=== PATIENT | female | born 1985 | race American Indian/Alaskan Native ===

== ENCOUNTER 2018-07-06 06:30 | Day surgery (SDC) | payer MEDICARE ==
--- NOTE | 2018-07-03 11:26 | RAD REPORT ---
EXAM DESCRIPTION: RAD - Chest Pa And Lat (2 Views) - 07/03/2018 11:14 am CLINICAL HISTORY: Preop chest, pending cholecystectomy an esophageal repair COMPARISON: None. TECHNIQUE: PA and lateral views of the chest were obtained. FINDINGS: The lungs are underinflated. This accentuates lung markings. No peripheral mass, consolida tion for acute failure findings. Heart size is normal and central vasculature is within normal limi ts. No pleural effusion or pneumothorax seen. No acute bony finding noted. No aortic abnormality. IMPRESSION: No acute cardiopulmonary process.
[2018-07-03 11:39] LABS: Absolute Monocytes 0.5 K/uL (0.1-1.3); Eosinophils % 0.8 % (0-4.4); Hematocrit 41.5 % (36.0-45.0); Lymphocytes % 23.7 % (15.3-44.8); MPV 8.1 fL (7.6-11.3); Monocytes % 5.3 % (3.3-12.3); RBC Red Blood Cell Count 4.43 M/uL (3.86-4.86)
[2018-07-03 11:52] LABS: Potassium 4.2 mmol/L (3.5-5.1)
--- OUTSIDE RECORDS SUMMARY | 2018-07-06 06:31 | XMS REPORT ---
:1985 [facility] Address [address] [place] [address] Dr. Sanchez [address] [place] [id number] Care Team Providers Name Role Phone Unavailable Unavailable Unavailable Problems This patient has no known problems. Allergies, Adverse Reactions, Alerts This patient has no known allergies or adverse reactions. Medications This patient has no known medications.
[2018-07-06] MEDS ORDERED: NA CHLORIDE 0.9% 1,000 ML ONE (06:58)
[2018-07-06] MEDS ORDERED: CIPROFLOXACIN 400mg IV 400 MG/200 ML BAG IV ONE (06:58)
[2018-07-06] MEDS ORDERED: EPINEPHRINE/PF 1 MG/ML AMP ONE (07:20)
[2018-07-06] MEDS ORDERED: LIDOCAINE 1% W/EPI 1:100,000 MDV 50 ML VIAL ONE (07:20)
[2018-07-06] MEDS ORDERED: PROPOFOL 200 MG/20 ML VIAL IV ONE (07:20)
[2018-07-06] MEDS ORDERED: GLYCOPYRROLATE 0.2 MG/ML SYR ONE ×2 (07:20)
[2018-07-06] MEDS ORDERED: LIDOCAINE 2% MPF 5 ML VIAL ONE (07:20)
[2018-07-06] MEDS ORDERED: MIDAZOLAM HCL 2 MG/2 ML INJ ONE (07:20)
[2018-07-06] MEDS ORDERED: FENTANYL CITR 250 MCG/5 ML ONE (07:22)
[2018-07-06] MEDS ORDERED: OFLOXACIN OPH 0.3%-5 ML BTL ONE (07:56)
[2018-07-06] MEDS ORDERED: ONDANSETRON 4 MG/2 ML VIAL ONE ×2 (08:28→11:09)
[2018-07-06] MEDS ORDERED: NEOSTIGMINE 1 MG/ML -10 ML VIAL ONE (08:28)
[2018-07-06] MEDS ORDERED: ROCURONIUM 50 MG/5 ML VIAL IV ONE (08:28)
[2018-07-06] MEDS ORDERED: HYDROCODONE/APAP 5/325 MG TAB ONE (11:10)
--- NOTE | 2018-07-06 18:16 | OP ---
Surgeon: Charlene Sparks MD Preoperative Diagnoses: Cerumen impaction, ear canal stenosis, Down syndrome, and esophageal web wit h dysphagia. Postoperative Diagnoses: Cerumen impaction, ear canal stenosis, Down syndrome, and esophageal web wi th dysphagia. Procedures Performed: Cerumen removal under general anesthesia and rigid esophagoscopy with balloon dilation to 13.5 mm. Indication For Procedure: Bryanna Garcia presented with dysphagia and chronic abdominal pain. She w as noted to have gallbladder dyskinesia and a swallow study demonstrating an upper esophageal web. S he was previously seen by the GI service, who was unable to pass a scope. The modified barium swallo w demonstrated the upper esophageal web. Description Of Procedure: Under general anesthesia, the patient's left ear was examined using an ope rating microscope and ear speculum. A mild amount of cerumen was removed using a wire curette. The right ear was then examined. The ear canal was completely impacted and removal of cerumen was accomp lished using a wire curette. Attention was then turned toward the oral cavity. A 25 cm rigid esopha goscope was used to perform a rigid esophagoscopy. The esophageal introitus was easily cannulated, a nd the scope was advanced to the area of the stricture. The esophageal balloon size 12-15 was passed under direct visualization through the area of stenosis and inflated to an atmospheric pressure of 3 . It was held in place for approximately 30 seconds and then deflated. The area was examined and de cision was made to repeat dilation. The balloon was again advanced through the area and inflated to 4 atmospheres. After dilation, a minimal amount of blood was noted and post-dilation photo demonstra waldo a tear in the left aspect of the esophageal web. There was no evidence of perforation of the eso phagus. The scope was withdrawn and the patient was returned to care of anesthesia for awakening, ex tubation. Disposition: The patient will be discharged home later today and can resume a soft diet for 48-72 ho urs and then resume regular diet. ELICIA/TORI Voice ID: [id number] Report ID: [id number]
--- NOTE | 2018-07-06 18:25 | DS ---
Date of Discharge: 07/06/2018 Discharge Note: The patient will have a procedure by Dr. Sparks following which the patient will be taken to recovery room and then will be discharged to home when stable. Disposition: Home. Condition: Stable. Discharge Instructions: Resume home medications and diet. Activity as tolerated. No heavy lifting. Remove outer dressing in 2 days. Shower. Keep wound clean and dry. Follow up in my office in 9-1 0 days, call for appointment. Tylenol No. 3 one tablet p.o. q.4 p.r.n. pain. /MODL Voice ID: [id number] Report ID: [id number]
--- NOTE | 2018-07-06 18:25 | OP ---
Date of Procedure: 07/06/2018 Surgeon: Amrit Winn MD Preoperative Diagnoses: Chronic cholecystitis and biliary dyskinesia. Postoperative Diagnoses: Chronic cholecystitis and biliary dyskinesia with extensive adhesions. Procedures: Laparoscopic cholecystectomy, lysis of adhesions. Estimated Blood Loss: Minimal. Specimen: Gallbladder. Findings: Above. Anesthesia: General. Complications: None. Disposition: The patient tolerated the procedure in stable condition and taken to Recovery in good g eneral condition. Procedure In Detail: The patient was brought to the OR and placed in supine position. General anest hesia was begun. The patient was prepped and draped in the usual sterile fashion. Marcaine 0.5% was infiltrated locally. A 15-blade was used to make a 1 cm supraumbilical midline incision. Subcutane ous tissue divided. The fascia was identified and divided. A #1 Vicryl stay suture was placed. Per itoneal cavity was entered with blunt dissection. A 12-mm trocar was placed into the peritoneal cavi ty under direct vision. Pneumoperitoneum was established. Then, three 5 mm trocars placed, 1 in the epigastrium just to the right of midline and 2 in the right subcostal region. Laparoscopy revealed extensive adhesions to the gallbladder. They were omental in nature. Fundus identified and retracte d superiorly. Adhesions were taken down with sharp and blunt dissection. Approximately 10 minutes o f time was required to dissect all of these adhesions down away from the gallbladder. Then infundibu lum was identified and retracted inferolaterally. Cystic duct and cystic artery were clearly identif ied with blunt dissection. Clips placed. Both structures were divided. Cautery was used to remove the gallbladder from the liver bed. Bleeding on the liver bed was controlled with cautery. The gall bladder was retrieved through the umbilicus via an EndoCatch bag. The right upper quadrant was irrig ated. Effluent was clear. No evidence of bleeding or bile leakage appreciated. Subsequently, all t rocars were removed under direct vision. Stay sutures were tied to each other to approximate the fas cial defect. Subcu wounds were irrigated. Bleeding controlled with cautery. 3-0 chromic used to ap proximate the subcutaneous tissue, and fei were used to close the skin. Sterile dressing was josé miguel lied. The patient was awakened and taken to Recovery in good general condition. /MODL Voice ID: [id number] Report ID: [id number]
== END 2018-07-06 11:45 | disposition home or self-care (01) ==
LOC: OR 06:30
PROVIDERS: ATTEND Otolaryngology
PROC: 09C47ZZ Extirpation of Matter from Left External Auditory Canal, Via Natural or Artificial Opening (ICD-10-PCS; 2018-07-06)
PROC: 09C37ZZ Extirpation of Matter from Right External Auditory Canal, Via Natural or Artificial Opening (ICD-10-PCS; 2018-07-06)
PROC: 0FT44ZZ Resection of Gallbladder, Percutaneous Endoscopic Approach (ICD-10-PCS; principal; 2018-07-06 07:30)
PROC: 0D758ZZ Dilation of Esophagus, Via Natural or Artificial Opening Endoscopic (ICD-10-PCS; 2018-07-06 07:30)
DX: K81.1 Chronic cholecystitis (principal); K66.0 Peritoneal adhesions (postprocedural) (postinfection); Q39.4 Esophageal web; R13.10 Dysphagia, unspecified; H61.23 Impacted cerumen, bilateral; Q90.9 Down syndrome, unspecified; E11.9 Type 2 diabetes mellitus without complications; E03.9 Hypothyroidism, unspecified; Z79.84 Long term (current) use of oral hypoglycemic drugs; Z79.899 Other long term (current) drug therapy
CPT/HCPCS: 47562; 43249; 69210; 85025; 80048; 36415; 81025; 82962 ×2; 88304; 71046; J2704; J2710; J2250; J3010; J7030; J2405 ×2; J0744; C1726; J0171